=== PATIENT | female | born 1965 | race Caucasian/White ===

== ENCOUNTER → 2022-02-05 | Outpatient (CLI) | payer BC, OTHER ==
[~2022-02-05] VITALS: Ht 170.2 cm; Wt 88.9 kg
[~2022-02-05] MED LIST: AMLO-251 PO; CANA300T PO; CETI10TA17 PO; CHOL100048 PO; DULO30CA49 PO; DULO60CA59 PO; LEVO88CA4 PO; LISI40TA9 PO; METF-478 PO; METO50TA7 PO; MONT-40 PO; PREG50CA2 PO; SIMV10TA26 PO; WARF-48 PO
== END | disposition home or self-care (01) ==
LOC: PREOP 06:47
PROVIDERS: ATTEND Surgery
DX: Z01.818 Encounter for other preprocedural examination (principal)

== ENCOUNTER 2022-11-11 06:07 | Outpatient (CLI) | payer OTHER ==
[~2022-11-11] VITALS: Ht 170.2 cm; Wt 90.3 kg
[2022-11-13] MEDS ORDERED: METF-479 PO (11:45)
[2022-11-13] MEDS ORDERED: PREG75CA75 PO (11:45)
[2022-11-13] MEDS ORDERED: TIZA4CAP8 PO (11:45)
[2022-11-13] MEDS ORDERED: CYAN250010 PO (11:45)
[2022-11-13] MEDS ORDERED: ACET-3075 PO (11:45)
== END 2022-11-13 11:46 | disposition home or self-care (01) ==
LOC: PREOP 06:07
PROVIDERS: ATTEND Surgery
DX: Z01.818 Encounter for other preprocedural examination (principal)

== ENCOUNTER 2022-11-23 09:24 | Day surgery (SDC) | payer OTHER ==
[~2022-11-23] VITALS: Ht 170.2 cm; Wt 90.3 kg
[2022-11-23] VITALS (7 sets, daily range): BP systolic 109–122; BP diastolic 70–85
[~2022-11-23 09:24] MED LIST changes: +ACET-3075 PO; +CYAN250010 PO; +METF-479 PO; +PREG75CA75 PO; +TIZA4CAP8 PO
[2022-11-23] MEDS ORDERED: LACTATED RINGERS 1,000 ML IV STA (09:28)
[2022-11-23] MEDS ORDERED: HURRICAINE EXT TUBE (BENZOCAINE) XX PRN (09:30)
--- NOTE | 2022-11-23 09:39 | Progress Note-Pre Operative ---
Pre-Operative Progress Note Date of Available H&P: Nov 10, 2022 Date H&P Reviewed: Nov 23, 2022 Time H&P Reviewed: 09:33 History & Physical: H&P Reviewed, Patient Examed, No changes noted Pre-Operative Diagnosis: Chronic Gastritis, Screening ISAURA EL DO Nov 23, 2022 09:39
[2022-11-23] MEDS ORDERED: MIDAZOLAM 2 MG/2 ML (VERSED) VIAL ONE (11:12)
[2022-11-23] MEDS ORDERED: PROPOFOL INJECTION 50 ML IV ONE ×2 (11:12→11:37)
--- NOTE | 2022-11-23 11:59 | Progress Note-Post Operative ---
Post-Operative Progess Note Surgeon (s)/House Mover Supervisor (s) Surgeon ISAURA EL DO House Mover Supervisor: Mark Robison, MSIII Pre-Operative Diagnosis Chronic Gastritis, Screening Post-Operative Diagnosis Gastritis Hiatal hernia Esophagitis Polyps diverticula int hemorrhoids Procedure & Operative Findings Date of Procedure 11/23/22 Procedure Performed/Findings EGD with bx Colon with snare PROCEDURE NOTE: After informed consent was obtained, the patient was brought to the endoscopy suite, placed in bed in left lateral decubitus position. She was administered IV sedation by the HAND COOPER HELPER who then monitored vitals the entire time, heart rate, blood pressure and pulse ox and the scope was inserted down the mouth through the esophagus into the stomach. On the way down, noted some mild esophagitis, took a picture, pushed into the stomach, pushed past the antrum into the duodenum. Duodenum looked good. Pulled back and did a biopsy of antrum, then retroflexed the scope, saw a large hiatal hernia, took a picture of this and then pulled the scope into the GE junction, took another picture of the hiatal hernia and then did a biopsy of the GE junction. Pushed the scope back into the stomach, suctioned all the air out of the stomach. At this point pulled the scope up the esophagus and out the mouth. Switched camera, switched gloves, went down below and started the colonoscopy. Pushed all the way to about 150 cm and pushed into the cecum, took a picture of appendiceal orifice and noted the ileocecal valve. Then slowly withdrew the scope insufflating to look circumferentially at the pelaez starting in the cecum, up the ascending colon to the hepatic flexure, then down the transverse colon, splenic flexure, into the descending colon down into the sigmoid; where I found a flat polyp and removed it with snare. I also saw multiple diverticula throughout the entire colon. Finally, into the rectal vault and retroflexed the scope. Took a picture of the internal hemorrhoids and noted another polyp. Removed this polyp with a snare as well. The patient tolerated the procedure and she recovered in the endoscopy suite. Recommended for repeat colonoscopy in 5 years Anesthesia Type IV sedation by HAND COOPER HELPER Estimated Blood Loss Estimated blood loss (mL): scant Specimens/Packing Specimens Removed antral bx GE jxn bx sigmoid polyp rectal polyp ISAURA EL DO Nov 23, 2022 11:59
--- NOTE | 2022-11-23 12:00 | Endoscopy Discharge Instruct ---
Endo Procedure/Findings Findings 1.: Gastritis 2.: Hiatal Hernia 3.: Polyp 4.: Diverticulosis, Internal Hemorrhoids Discharge Instructions - Activity: You might feel a little sleepy until tomorrow. This is due to the medicine you received to relax you. Until tomorrow, you should: NOT drive a car, operate machinery or power tools. NOT drink any alcoholic beverages. NOT make any important decisions or sign importortant papers. Do not return to work until tomorrow, unless otherwise instructed. Resume previous activities tomorrow. Diet: Start by taking liquids. If you tolerate liquids, advance to solid food. 1.: EGD in 3 years 2.: Colonscopy in 5 years Notify Physician - If you experience excessive bleeding, unusual abdominal pain, fever, or chest pain, contact your doctor immediately. ISAURA EL DO Nov 23, 2022 12:00
--- NOTE | 2022-11-23 12:15 | Anesthesia-General Post-Op ---
MAC Patient Condition Mental Status/LOC: Same as Preop Cardiovascular: Satisfactory Nausea/Vomiting: Absent Respiratory: Satisfactory Pain: Controlled Complications: Absent Post Op Complications Complications None Follow Up Care/Instructions Patient Instructions None needed. Anesthesiology Discharge Order Discharge Order Patient is doing well, no complaints, stable vital signs, no apparent adverse anesthesia problems. No complications reported per nursing. MITCHELL CORMIER CRNA Nov 23, 2022 12:15
== END 2022-11-23 12:42 | disposition home or self-care (01) ==
LOC: ENDO 09:24
PROVIDERS: ATTEND Surgery
DX: Z12.11 Encounter for screening for malignant neoplasm of colon (principal); K63.5 Polyp of colon; K62.1 Rectal polyp; K29.50 Unspecified chronic gastritis without bleeding; K64.8 Other hemorrhoids; K21.00 Gastro-esophageal reflux disease with esophagitis, without bleeding; K44.9 Diaphragmatic hernia without obstruction or gangrene; K57.30 Diverticulosis of large intestine without perforation or abscess without bleeding